=== PATIENT | female | born 1965 | race Two or more races ===

== ENCOUNTER 2025-05-16 11:50 | Emergency (ER) | payer OTHER ==
[~2025-05-16] VITALS: Ht 175.3 cm; Wt 99.3 kg
[2025-05-16] MEDS ORDERED: FAMOTIDINE/PF 20 MG/2 ML VIAL IV STA (14:55)
[2025-05-16] MEDS ORDERED: DEXAMETHASONE SODIUM PHOSP/PF 10 MG/ML VIAL IV STA (14:55)
[2025-05-16] MEDS ORDERED: DIPHENHYDRAMINE HCL 50 MG/ML VIAL 1ML IV STA (14:55)
[2025-05-16 16:13] LABS: BASO % 0.6 % (0.1-1.2); EOS # 0.23 (0.04-0.54); EOS % 4.6 % (0.7-7.0); LYMPH # 1.70 (1.18-3.74); LYMPH % 34.3 % (19.3-53.1); MEAN PLATELET VOLUME 12.30 fl (9.4-12.4); MONO # 0.46 (0.24-0.82); MONO % 9.3 % (4.7-12.5); NEUT # 2.53 (1.56-6.13); NEUT % 51.2 % (34.0-71.1); RED CELL DISTRIBUTION WIDTH 13.8 % (11.6-14.4)
[2025-05-16 16:41] LABS: ALT/SGPT 25.0 U/L (12-78); AST/SGOT 24.0 U/L (15-37); BILIRUBIN TOTAL 0.45 mg/dL (0.3-1.2); BUN CREA RATIO 14.0 (7.0-25.0); CREATININE SERUM 0.95 mg/dL (0.55-1.02); GFR 60.0; GLOBULINA 3.4 G/DL (2.4-3.5); GLUCOSE FASTING 85.0 mg/dL (65-100); OSMOLALITY SERUM 288.0 MOSM/KG (275-295)
[2025-05-16] MEDS ORDERED: XYZAL5 MG PO (17:42)
== END 2025-05-16 18:03 | disposition home or self-care (01) ==
LOC: ER 11:50
PROVIDERS: Preventive Medicine Public Health & General Preventive Medicine
DX: T78.40XA Allergy, unspecified, initial encounter (principal); Z91.040 Latex allergy status; Z91.018 Allergy to other foods; Z88.0 Allergy status to penicillin; Z88.1 Allergy status to other antibiotic agents; Z91.030 Bee allergy status